=== PATIENT | male | born 1955 | race Two or more races ===

== ENCOUNTER 2017-08-07 18:30 | Emergency (ER) | payer MEDICARE ==
[~2017-08-07] VITALS: Ht 182.9 cm; Wt 96.0 kg
[2017-08-07] MEDS ORDERED: IBUP-2028 PO (19:07)
[2017-08-07] MEDS ORDERED: tylenol #3 (19:07)
[2017-08-07] MEDS ORDERED: KETOROLAC 60MG/2ML VIAL IM STA (21:47)
[2017-08-07 22:24] LABS: BASOPHILS % 0.8 % (0.0-2.0); EOSINOPHILS % 2.6 % (0.0-5.0); HEMOGLOBIN. 11.4 g/dL (14.0-18.0); MEAN CORPUSCULAR HEMOGLOBIN 28.9 pg (28.0-32.0); MEAN CORPUSCULAR VOLUME 86.3 fL (80.0-94.0); MONOCYTES % 7.7 % (2.0-8.0); NEUTROPHILS % 62.9 % (40.0-76.0); PLATELET 220 x1000/uL (130-400); RED BLOOD CELL COUNT 3.95 mill/uL (4.7-6.1); RED CELL DISTRIBUTION WIDTH 15.3 % (11.6-14.6)
[2017-08-07 22:29] LABS: CHLORIDE 104 mEq/L (98-107); INR 1.1; PROTHROMBIN TIME 11.1 sec (9.4-11.6)
[2017-08-07 22:37] LABS: CARBON DIOXIDE 26 mEq/L (21-32)
[2017-08-07] MEDS ORDERED: MORPHINE SULFATE 10 MG/ML CPJ IM ONE (23:30)
[2017-08-07] MEDS ORDERED: ONDANSETRON HCL 4MG/2ML VIAL IM ONE (23:30)
[2017-08-07 23:54] LABS: CLARITY URINE CLEAR (CLEAR); COLOR URINE YELLOW (YELLOW); GLUCOSE URINE NEGATIVE (NEGATIVE); KETONES URINE NEGATIVE (NEGATIVE); LEUKOCYTE ESTERASE URINE NEGATIVE (NEGATIVE); NITRITE URINE NEGATIVE (NEGATIVE); OCCULT BLOOD URINE 2+ (NEGATIVE); PH URINE 5.5 (4.5-8.0); PROTEIN URINE NEGATIVE (NEGATIVE); SPECIFIC GRAVITY URINE 1.022 (1.005-1.030); UROBILINOGEN URINE 0.2 E.U./dL (0.2-1.0)
[2017-08-08 01:10] VITALS: BP 140/80
== END 2017-08-08 01:11 | disposition home or self-care (01) ==
LOC: ER 20:36
DX: M54.5 Low back pain (principal); Z87.311 Personal history of (healed) other pathological fracture
CPT/HCPCS: 36415; 74176; 80053; 81001; 83690; 85025; 85610; 96372; 99285; J1885; J2270; J2405